=== PATIENT | female | born 1945 | race Caucasian/White ===

== ENCOUNTER → 2024-10-23 | Outpatient (REF) | payer MEDICARE ==
[~2024-10-23] MED LIST: AMLO1TAB25 PO; D3 H10002 PO; FLON1SPR NARES; FURO40TA2 PO; LISI40TA10 PO; METO50TA7 PO; OMEP-173 PO; OYST1TAB PO; PANT40TA29 PO; POTA-298 PO; SIMV20TA22 PO; SUCR1TA PO; THERTAB19 PO; TRIA1CR80 TOP
[2024-10-23 18:56] LABS: BASO # 0.1 10^3/uL (0.0-0.2); BASO % 0.9 % (0.0-1.0); EOS # 0.2 10^3/uL (0.0-0.5); EOS % 3.6 % (0.0-3.0); LYMPH # 0.8 10^3/uL (1.5-5.0); LYMPH % 14.5 % (24.0-44.0); MONO # 0.5 10^3/uL (0.0-0.8); MONO % 8.6 % (2.0-8.0); NEUTROPHILS # 4.2 10^3/uL (1.5-8.5); NEUTROPHILS % 71.7 % (36.0-66.0); PLATELET COUNT, AUTOMATED 197 10^3/uL (150-450)
[2024-10-23 19:26] LABS: ALT/SGPT 20.0 U/L (7.0-40); AST/SGOT 21.0 U/L (<34); CALCIUM LEVEL 8.9 MG/DL (8.3-10.6); CARBON DIOXIDE LEVEL 26.0 MMOL/L (20-31); CHLORIDE LEVEL 104.0 MMOL/L (98-107); CHOLESTEROL LEVEL 154.0 MG/DL (<200); CHOLESTEROL RISK RATIO 4.31 (<5); CREATININE FOR GFR 0.9 MG/DL (0.55-1.30); GLOMERULAR FILTRATION RATE 65.8 (>39); LDL CHOLESTEROL 72.3 MG/DL (<100); NON-HDL-C 118.3 MG/DL; POTASSIUM SERUM 4.5 MMOL/L (3.5-5.1); SODIUM LEVEL 144.0 MMOL/L (136-145); TRIGLYCERIDES LEVEL 230.0 MG/DL (<150)
== END ==
LOC: M LAB REF 17:15
PROVIDERS: ATTEND Student in an Organized Health Care Education/Training Program
DX: E78.2 Mixed hyperlipidemia (principal)